=== PATIENT | female | born 1995 | race Caucasian/White ===

== ENCOUNTER → 2020-12-08 | Outpatient (CLI) | payer BC ==
[2020-12-08 22:43] LABS: Basophils # (A) 0.02 X 10*3/uL (0.00-0.10); Basophils % (A) 0.4 %; Eosinophils # (A) 0.05 X 10*3/uL (0.04-0.35); HCT 40.7 % (37.2-46.3); HGB 13.8 g/dL (12.0-15.0); Lymphocytes # (A) 1.34 X 10*3/uL (0.90-5.00); Lymphocytes % (A) 27.2 %; MCH 32.7 pg (27.0-32.0); MCHC 33.9 g/dL (32.0-37.0); MCV 96.4 fL (80.0-97.0); Monocytes # (A) 0.57 X 10*3/uL (0.20-1.00); Monocytes % (A) 11.6 %; Neutrophils # (A) 2.93 X 10*3/uL (1.80-7.70); Neutrophils % (A) 59.4 %; Platelet Count 260 X 10*3/uL (140-440); RBC 4.22 X 10*6/uL (4.10-5.20); RDW 12.7 % (11.5-14.5); WBC 4.93 X 10*3/uL (4.50-10.00)
[2020-12-09 17:26] LABS: % Iron Saturation 69.03 (12.00-45.00); African American GFR (CKD) 118.8 (60.0-200.0); Albumin 4.4 g/dL (3.80-4.90); Albumin/Globulin Ratio 1.63 (1.60-3.17); Anion Gap 12.7 mmol/L (4.00-12.00); BUN/Creat Ratio 16.25 Ratio (12.00-20.00); Calcium 9.3 mg/dL (8.7-10.3); Carbon Dioxide 20.3 mmol/L (21.6-31.8); Globulin 2.7 g/dL (1.6-3.3); Non-African American GFR(CKD) 102.5 (60.0-200.0); Potassium 4.6 mmol/L (3.5-5.5); Total Bilirubin 0.7 mg/dL (0.2-1.2); Total Protein 7.1 g/dL (6.2-8.2)
[2020-12-09 17:34] LABS: Ferritin 50.9 ng/mL (10.0-291.0)
== END | disposition home or self-care (01) ==
LOC: LABWHC1 16:02
PROVIDERS: ATTEND Nurse Practitioner Adult Health
DX: E55.9 Vitamin D deficiency, unspecified (principal); K50.80 Crohn's disease of both small and large intestine without complications
CPT/HCPCS: 36415; 80053; 82306; 82607; 82728; 83540; 83550; 85025; 86480